=== PATIENT | male | born 1970 | race African-American/Black ===

== ENCOUNTER → 2016-12-29 | Outpatient (CLI) | payer OTHER ==
--- NOTE | 2016-12-29 09:13 | KCIC ---
Chest PA and lateral Indication: Cough and hypertension. Time of exam 8:49 a.m. No prior studies are available for comparison. The heart is enlarged. There appears to be some subtle airspace infiltrate in the right mid and upper lung field suggestive of pneumonia. The left lung is clear. No effusion or pneumothorax is seen. Impression: Cardiomegaly and right-sided pulmonary infiltrates suggestive of pneumonia. Electronically signed by: Ok Arreguin MD (Dec 29, 2016 09:11:59)
== END | disposition home or self-care (01) ==
LOC: KCIC 08:24
PROVIDERS: ATTEND Internal Medicine
DX: I10 Essential (primary) hypertension (principal); R05 Cough
CPT/HCPCS: 71020

== ENCOUNTER 2017-07-18 16:23 | Emergency (ER) | payer OTHER ==
[~2017-07-18] VITALS: Ht 172.7 cm; Wt 120.9 kg
[2017-07-18] MEDS ORDERED: IV NORMAL SALINE 1000ML BAG 1,000 ML IV ONE ×2 (17:45→19:45)
--- NOTE | 2017-07-18 17:52 | PHYS DOC ---
Past Medical History Past Medical History: CAD, CHF, Hypertension, Other Additional Past Medical Histor: GOUT Past Surgical History: Other Additional Past Surgical Histo: STENTS Alcohol Use: None Drug Use: None Adult General Chief Complaint Chief Complaint: CONSTIPATION HPI HPI Patient is a 47 year old M who presents with no bowel movement for the past 10 days. Patient states he's been following up with his PCP as been taking multiple different medications to help relieve his constipation with no success. Patient denies any previous abdominal surgeries. Patient denies any nausea or vomiting. Patient states he has some watery diarrhea with no formed stool. Patient denies any dysuria. Patient has no other complaints. 1730: Patient's PCP Dr. Cotton called in prior to patient's arrival stating that he's had no bowel movement for the past 10 days has tried multiple outpatient treatments and was seen earlier in the office today by nurse practitioner and has a past medical history of his heart failure and diabetes as currently on diuretics with no previous abdominal surgeries. Review of Systems Review of Systems GEN: Denies fevers, chills, sweats HEENT: Denies blurred vision, sore throat CV: Denies chest pain RESP: Denies shortness of air, cough GI: Constipation NEURO: Denies confusion, dizziness MSK: Denies weakness, joint pain/swelling Current Medications Current Medications Current Medications Medications (Trade) Dose Ordered Sig/Blane Start Time Stop Time Status Last Admin Dose Admin Info (Do NOT chart on this entry -- for MONITORING) 1 each PRN DAILY PRN 07/18/17 18:45 07/20/17 18:44 Iohexol (Omnipaque 300 Mg/ml) 75 ml 1X ONCE 07/18/17 18:45 07/18/17 18:46 DC 07/18/17 18:43 75 ML Sodium Chloride 1,000 ml @ 1,000 mls/hr 1X ONCE 07/18/17 19:45 07/18/17 20:44 07/18/17 20:26 1,000 MLS/HR Allergies Allergies Allergies Coded Allergies Type Severity Reaction Last Updated Verified No Known Drug Allergies 07/18/17 No Physical Exam Physical Exam GEN.: No apparent distress. Alert and oriented. HEENT: Head is normocephalic, atraumatic NECK: Supple. LUNGS: CTAB. HEART: RRR, S1, S2 present. Peripheral pulses intact ABDOMEN: Soft, mild abdominal pain with hypoactive bowel sounds in all 4 quadrants, no abdominal distention Positive bowel sounds. EXTREMITIES: Without any cyanosis. NEUROLOGIC: Normal speech, normal tone PSYCHIATRIC: Normal affect, normal mood. SKIN: No ulcerations Current Patient Data Vital Signs Vital Signs Date Time Temp Pulse Resp B/P (MAP) Pulse Ox O2 Delivery O2 Flow Rate FiO2 07/18/17 17:24 98.4 107 24 137/89 (105) 100 Room Air 98.4 Lab Values Laboratory Tests Test 07/18/17 17:55 White Blood Count 5.9 x10^3/uL (4.0-11.0) Red Blood Count 5.91 x10^6/uL (4.30-5.70) H Hemoglobin 19.1 g/dL (13.0-17.5) H Hematocrit 57.5 % (39.0-53.0) H Mean Corpuscular Volume 97 fL (79-100) Mean Corpuscular Hemoglobin 32 pg (25-35) Mean Corpuscular Hemoglobin Concent 33 g/dL (31-37) Red Cell Distribution Width 15.1 % (11.5-14.5) H Platelet Count 272 x10^3/uL (140-400) Neutrophils (%) (Auto) 58 % (31-73) Lymphocytes (%) (Auto) 23 % (24-48) L Monocytes (%) (Auto) 13 % (0-9) H Eosinophils (%) (Auto) 3 % (0-3) Basophils (%) (Auto) 2 % (0-3) Neutrophils # (Auto) 3.5 x10^3uL (1.8-7.7) Lymphocytes # (Auto) 1.4 x10^3/uL (1.0-4.8) Monocytes # (Auto) 0.8 x10^3/uL (0.0-1.1) Eosinophils # (Auto) 0.2 x10^3/uL (0.0-0.7) Basophils # (Auto) 0.1 x10^3/uL (0.0-0.2) Sodium Level 141 mmol/L (136-145) Potassium Level 3.7 mmol/L (3.5-5.1) Chloride Level 100 mmol/L (98-107) Carbon Dioxide Level 28 mmol/L (21-32) Anion Gap 13 (6-14) Blood Urea Nitrogen 43 mg/dL (8-26) H Creatinine 1.6 mg/dL (0.7-1.3) H Estimated GFR (Cockcroft-Gault) 56.1 BUN/Creatinine Ratio 27 (6-20) H Glucose Level 112 mg/dL (70-99) H Calcium Level 9.6 mg/dL (8.5-10.1) Total Bilirubin 2.6 mg/dL (0.2-1.0) H Aspartate Amino Transferase (AST) 50 U/L (15-37) H Alanine Aminotransferase (ALT) 43 U/L (16-63) Alkaline Phosphatase 328 U/L (46-116) H Total Protein 7.8 g/dL (6.4-8.2) Albumin 3.5 g/dL (3.4-5.0) Albumin/Globulin Ratio 0.8 (1.0-1.7) L Lipase 233 U/L (73-393) Laboratory Tests 07/18/17 17:55 Laboratory Tests 07/18/17 17:55 EKG EKG [] Radiology/Procedures Radiology/Procedures CT scan abdomen and pelvis with contrast: Impression: 1. No acute abnormality identified in the abdomen or pelvis. 2. Colonic diverticulosis without evidence of diverticulitis. 3. Left renal lesion, appears denser than simple cyst. Attempt at evaluation with elective, nonemergent renal ultrasound could be made. 4. Pulmonary emphysema.[] Course & Med Decision Making Course & Med Decision Making Pertinent Labs and Imaging studies reviewed. (See chart for details) ED course: Patient was seen and examined emergency room abdominal workup was ordered along with a CT scan of abdomen and pelvis with contrast 2014: Patient is reexamined in which he was doing much better and updated him on CT findings and lab results. 2029: Discussed CC/HP/PMH and abnormal lab work including a total bilirubin of 2.3 and elevated alkaline phosphatase with Dr. Cotton and recommends discharge home and called the office tomorrow for an appointment for Tuesday in which she will discontinue one of his diuretics. 2034: This plan was discussed with the patient who is in agreement and wants to go home. MDM: After reviewing the chart, CC/HPI/PMH, physical exam, [lab results], [ radiological results], I do not believe the patient has intra-abdominal emergency warranting further workup and/or admission at this time. Patient was updated on abnormal blood work and CT results. Recommended patient to call tomorrow to set up an appointment for Tuesday with his PCP Dr. Cotton who is been made aware of his workup and abnormalities in the emergency room. Patient is stable for discharge. Additional verbal discharge instructions were provided to the patient and that if symptoms get worse or any new symptoms arise that are worrisome to the patient he is to return to the emergency room immediately [] Dragon Disclaimer Dragon Disclaimer This electronic medical record was generated, in whole or in part, using a voice recognition dictation system. Departure Departure Impression: Primary Impression: Constipation Additional Impressions: Dehydration Abdominal pain Disposition: HOME, SELF-CARE Referrals: VIKASH COTTON MD (PCP) Patient Instructions: Constipation, Adult, Dehydration, Adult Additional Instructions: Please follow-up with Dr. Cotton on Tuesday and please call tomorrow for an appointment for this Tuesday. Problem Qualifiers ANUPAMA DUVAL DO Jul 18, 2017 17:52
[2017-07-18 18:03] LABS: BASO # 0.1 x10^3/uL (0.0-0.2); BASO % 2 % (0-3); EOS % 3 % (0-3); HEMATOCRIT 57.5 % (39.0-53.0); HEMOGLOBIN 19.1 g/dL (13.0-17.5); LYMPH # 1.4 x10^3/uL (1.0-4.8); LYMPH % 23 % (24-48); MEAN CORPUSCULAR HEMOGLOBIN 32 pg (25-35); MEAN CORPUSCULAR HGB CONC 33 g/dL (31-37); MEAN CORPUSCULAR VOLUME 97 fL (79-100); MONO % 13 % (0-9); NEUT % 58 % (31-73); PLATELET COUNT 272 x10^3/uL (140-400); RED BLOOD COUNT 5.91 x10^6/uL (4.30-5.70); RED CELL DISTRIBUTION WIDTH 15.1 % (11.5-14.5); WHITE BLOOD COUNT 5.9 x10^3/uL (4.0-11.0)
[2017-07-18 18:17] LABS: CALCIUM 9.6 mg/dL (8.5-10.1); CREATININE 1.6 mg/dL (0.7-1.3); GFR 56.1; POTASSIUM 3.7 mmol/L (3.5-5.1)
[2017-07-18 18:22] LABS: ALBUMIN 3.5 g/dL (3.4-5.0); ALBUMIN/GLOBULIN RATIO 0.8 (1.0-1.7); TOTAL BILIRUBIN 2.6 mg/dL (0.2-1.0); TOTAL PROTEIN 7.8 g/dL (6.4-8.2)
[2017-07-18] MEDS ORDERED: IOHEXOL 300 MG/ML 75 ML VIAL IV ONE (18:45)
[2017-07-18] MEDS ORDERED: CONTRAST GIVEN MC PRN (18:45)
--- NOTE | 2017-07-18 19:34 | RAD ---
CT Abdomen and Pelvis With Intravenous Contrast: History: Constipation for 10 days. Comparison: None. Technique: After administration of intravenous contrast administration, 60 mL Omnipaque-300, CT of the abdomen and pelvis was performed. Exposure: One or more of the following individualized dose reduction techniques were utilized for this examination: 1. Automated exposure control 2. Adjustment of the mA and/or kV according to patient size 3. Use of iterative reconstruction technique Findings: Evaluation of enteric structures may be limited by lack of oral contrast. Images of the lower chest demonstrate emphysematous blebs. Fatty liver disease is seen. Spleen, pancreas, gallbladder, and bilateral adrenal glands are unremarkable. Bilateral kidneys enhance symmetrically. Left kidney demonstrates 3.5 cm low-density lesion with Hounsfield units of 45, above that of simple cyst. No bowel obstruction or inflammation is identified. The appendix is without evidence of inflammation. No free air free fluid is seen in the abdomen or pelvis. Colonic diverticulosis is noted, but no diverticulitis is appreciated. Urinary bladder is unremarkable. No free air free fluid is seen in the abdomen or pelvis. Impression: 1. No acute abnormality identified in the abdomen or pelvis. 2. Colonic diverticulosis without evidence of diverticulitis. 3. Left renal lesion, appears denser than simple cyst. Attempt at evaluation with elective, nonemergent renal ultrasound could be made. 4. Pulmonary emphysema. Electronically signed by: Natanael Carpio MD (07/18/2017 7:30 PM) [facility]
[2017-07-18 20:23] VITALS: BP 136/85
[2017-07-18 20:33] LABS: BILIRUBIN,URINE NEGATIVE (NEG); GLUCOSE,URINE NEGATIVE (NEG); NITRITE,URINE NEGATIVE (NEG); PH,URINE 6.5; PROTEIN,URINE NEGATIVE (NEG-TRACE); UROBILINOGEN,URINE 0.2 mg/dL (0.2 mg/dL)
[2017-07-18 20:37] LABS: BACTERIA,URINE 0 /HPF (0-FEW); RBC,URINE 0 /HPF (0-2); WBC,URINE 0 /HPF (0-4)
== END 2017-07-18 21:12 | disposition home or self-care (01) ==
LOC: ER 16:23
DX: K59.00 Constipation, unspecified (principal); E86.0 Dehydration; R10.9 Unspecified abdominal pain; I11.0 Hypertensive heart disease with heart failure; I50.9 Heart failure, unspecified; E11.9 Type 2 diabetes mellitus without complications; M10.9 Gout, unspecified; I25.10 Atherosclerotic heart disease of native coronary artery without angina pectoris; Z95.5 Presence of coronary angioplasty implant and graft
CPT/HCPCS: 36415; 74177; 80053; 81001; 83690; 85025; 96360; 96361; 99285; J7030; Q9967